=== PATIENT | female | born 1945 | race Caucasian/White ===

== ENCOUNTER 2018-01-14 11:17 | Outpatient (REF) | payer MEDICARE, OTHER, MEDICAID, SELFPAY ==
[2018-01-14 13:00] LABS: ALT 11 U/L (12-78); AST 19 U/L (15-37); Albumin 3.4 g/dL (3.4-5.0); Alkaline Phosphatase 95 U/L (46-116); Anion Gap 3.8 mmol/L (3-11); BUN 18 mg/dL (7-18); Bilirubin, Total 0.3 mg/dL (0.2-1.0); CO2 32.2 mmol/L (21.0-32.0); Calcium 8.9 mg/dL (8.5-10.1); Chloride 105 mmol/L (98-107); Glucose 126 mg/dL (70-100); Magnesium 1.9 mg/dL (1.8-2.4); Potassium 4.4 mmol/L (3.5-5.1); Sodium 141 mmol/L (136-145); Total Protein 6.7 g/dL (6.4-8.2)
== END 2018-01-14 11:37 ==
LOC: LBN 11:17
PROVIDERS: Visit Provider Family Medicine
DX: I10 Essential (primary) hypertension (principal); G20 Parkinson's disease; F02.80 Dementia in other diseases classified elsewhere, unspecified severity, without behavioral disturbance, psychotic disturbance, mood disturbance, and anxiety
CPT/HCPCS: 80053; 83735

== ENCOUNTER 2018-11-11 01:14 | Outpatient (CLI) | payer MEDICARE, MEDICAID, SELFPAY ==
--- NOTE | 2018-11-11 11:56 | DI.RAD_ITS ---
SYMPTOM/DIAGNOSIS: FELL, INTERMEDIATE CHRONIC PAIN LEFT SHOULDER: Five views were obtained. 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 There is no evidence of acute fracture or dislocation.
== END 2018-11-11 01:34 ==
PROVIDERS: Visit Provider Family Medicine
DX: M25.512 Pain in left shoulder (principal); G89.29 Other chronic pain; M19.012 Primary osteoarthritis, left shoulder
CPT/HCPCS: 73030

== ENCOUNTER 2019-06-23 13:47 | Outpatient (REF) | payer MEDICARE, MEDICAID, SELFPAY ==
[2019-06-23 13:58] LABS: Calculated LDL 116 mg/dL (<100); Cholesterol 173 mg/dL (<200); HDL Cholesterol 31 mg/dL (40-60); Triglyceride 132 mg/dL (<150)
[2019-06-23 14:01] LABS: Hemoglobin A1C 5.6 % (3.8-5.6)
== END 2019-06-23 14:07 ==
LOC: LBN 13:47
PROVIDERS: PCP Family Medicine; Visit Provider Family Medicine
DX: I10 Essential (primary) hypertension (principal); E11.40 Type 2 diabetes mellitus with diabetic neuropathy, unspecified
CPT/HCPCS: 80061; 83036

== ENCOUNTER 2019-12-23 16:29 | Outpatient (REF) | payer MEDICARE, MEDICAID, SELFPAY ==
[2019-12-23 17:42] LABS: Bilirubin Negative (Negative); Blood Trace-intact (Negative); Clarity Cloudy (Clear); Glucose Negative (Negative); Ketones Trace mg/dL (Negative); Leukocyte Esterase Moderate (Negative); Nitrite Positive (Negative); Specific Gravity 1.025 (1.005-1.025); Urobilinogen 0.2 EU/dL (Up TO 0.2)
[2019-12-23 17:51] LABS: WBC >50 HPF (0-5)
[2019-12-23 17:52] LABS: C & S Indicated? Yes
== END 2019-12-23 16:49 ==
LOC: LBN 16:29
PROVIDERS: PCP Family Medicine; Visit Provider Nurse Practitioner Gerontology
DX: N39.0 Urinary tract infection, site not specified (principal)
CPT/HCPCS: 87077; 81003; 81015; 87086; 87186

== ENCOUNTER 2020-07-13 14:56 | Outpatient (REF) | payer MEDICARE, MEDICAID, SELFPAY ==
[2020-07-13 16:07] LABS: Anion Gap 9.6 mmol/L (3-11); BUN 28 mg/dL (7-18); CO2 25.4 mmol/L (21.0-32.0); CREATININE 0.6 mg/dL (0.55-1.02); Calcium 9.2 mg/dL (8.5-10.1); Chloride 108 mmol/L (98-107); Glucose 121 mg/dL (74-106); Sodium 143 mmol/L (136-145)
[2020-07-13 16:55] LABS: Hemoglobin A1C 5.2 % (<5.7)
== END 2020-07-13 14:57 | disposition home or self-care (01) ==
LOC: LBN 14:56
PROVIDERS: PCP Family Medicine; Visit Provider Family Medicine
DX: E11.69 Type 2 diabetes mellitus with other specified complication (principal); I25.10 Atherosclerotic heart disease of native coronary artery without angina pectoris; G31.83 Neurocognitive disorder with Lewy bodies; G20 Parkinson's disease; E66.01 Morbid (severe) obesity due to excess calories
CPT/HCPCS: 80048; 83036